=== PATIENT | male | born 1955 | race Two or more races ===

== ENCOUNTER 2020-04-21 20:54 | Inpatient (IN) | payer MEDICARE, MEDICAID ==
[~2020-04-21] VITALS: Ht 180.3 cm; Wt 113.8 kg
--- NOTE | 2020-04-21 21:14 | NUR ---
Pt arrives via ems to ed fro loss of loc after being found down. Pt does not remeber event but is a/ox3. reports he just took a tumbel over foot. Pt denies drug or etoh use. No s/sx of trauma, pt follows commands. Is very sleepy. No gross etoh smell at this time. Pt has gross neuro intact. Pt resting in gurney. Urinal and call light at bedside.
[2020-04-21 21:37] LABS: BASOPHILS # (AUTO) 0.02 x10^3/uL (0-0.1); BASOPHILS % (AUTO) 0 % (0-1); EOSINOPHILS % (AUTO) 0 % (1-7); LYMPHOCYTES # (AUTO) 0.37 x10^3/uL (1-3.4); LYMPHOCYTES % (AUTO) 4 % (22-44); MD NO; MEAN CORPUSCULAR HEMOGLOBIN 25.9 pg (27.5-34.5); MEAN CORPUSCULAR HGB CONC 32.4 g/dL (33.2-36.2); MEAN PLATELET VOLUME 10.9 fL (7.4-10.4); MONOCYTES # (AUTO) 0.34 x10^3/uL (0.2-0.8); MONOCYTES % (AUTO) 3 % (2-9); NEUTROPHILS # (AUTO) 9.78 x10^3/uL (1.8-6.8); NEUTROPHILS % (AUTO) 93 % (42-75); PLATELET COUNT 143 x10^3/uL (130-400); RED BLOOD COUNT 5.07 x10^6/uL (4.38-5.82)
[2020-04-21 21:40] LABS: ALANINE AMINOTRANSFERASE 39 U/L (12-78); ALBUMIN 3.6 g/dL (3.4-5.0); ANION GAP 14 mmol/L (5-15); CALCIUM 9.4 mg/dL (8.5-10.1); CHLORIDE 100 mmol/L (98-107); CREATININE 2.21 mg/dL (0.7-1.3)
[2020-04-21 21:44] LABS: ALKALINE PHOSPHATASE 90 U/L (45-117); BILIRUBIN,TOTAL 1.6 mg/dL (0.2-1.0); TOTAL PROTEIN 8.1 g/dL (6.4-8.2)
[2020-04-21] MEDS ORDERED: ASPIRIN 81 MG TABLET CHEW ONE (22:05)
[2020-04-21] MEDS ORDERED: ASPIRIN 81 MG TABLET CHEW PO ONE (22:30)
--- NOTE | 2020-04-21 22:33 | NUR ---
Spoke with MD regarding abnormal labs, pt to have one liter of NS and then to be admitted.
[2020-04-21] MEDS ORDERED: ASPI-515 PO (22:53)
[2020-04-21] MEDS ORDERED: FURO-93 PO (22:53)
[2020-04-21] MEDS ORDERED: CARV3.1212 PO (22:53)
[2020-04-21] MEDS ORDERED: ONDANSETRON 2MG/ML, 2ML IVPush PRN (23:00)
[2020-04-21] MEDS ORDERED: ACETAMINOPHEN 325 MG TABLET PO PRN (23:00)
[2020-04-21] MEDS ORDERED: morphine SULFATE 10 MG/ML, 1ML IVPush PRN (23:00)
[2020-04-21] MEDS ORDERED: HEPARIN 5,000 UNITS/ML, 1ML SQ SCH (23:00)
[2020-04-21] MEDS ORDERED: SODIUM CHLORIDE 0.9%, 500ML IVBOLUS ONE (23:00)
[2020-04-21] MEDS ORDERED: hydrALAzine 20 MG/ML, 1ML IVPush PRN (23:00)
[2020-04-21] MEDS ORDERED: POLYETHYLENE GLYCOL 17 GM PACKET PO PRN (23:00)
[2020-04-21] MEDS ORDERED: BISACODYL 10 MG SUPP PR PRN (23:00)
--- NOTE | 2020-04-21 23:43 | NUR ---
Pt provided with refreshments and nutrition.
[2020-04-22 00:22] VITALS: BP 145/86
[2020-04-22] MEDS ORDERED: CARV6.2512 PO (01:06)
[2020-04-22] MEDS ORDERED: GABA600T7 PO (01:06)
[2020-04-22] MEDS: NICOTINE 14MG/24 HR PATCH.TD24 TD SCH ×2 (01:40→20:28)
[2020-04-22 05:07] LABS: ALBUMIN 3.4 g/dL (3.4-5.0); ANION GAP 15 mmol/L (5-15); CALCIUM 9.2 mg/dL (8.5-10.1); CHLORIDE 100 mmol/L (98-107)
[2020-04-22 05:19] LABS: CREATININE 2.13 mg/dL (0.7-1.3)
[2020-04-22 05:20] LABS: ALANINE AMINOTRANSFERASE 46 U/L (12-78); ALKALINE PHOSPHATASE 96 U/L (45-117); BILIRUBIN,TOTAL 1.1 mg/dL (0.2-1.0); CHOL/HDL RATIO 4.9; CHOLESTEROL, TOTAL 195 mg/dL (140-239); HDL CHOL % 21 % (26-37); HDL CHOLESTEROL (DIRECT) 40 mg/dL (40-60); LDL CHOLESTEROL,CALCULATED 134 mg/dL (54-169); LDL/HDL RATIO 3.4 (0.5-3.0); TRIGLYCERIDES 105 mg/dL (50-200); VLDL CHOLESTEROL 21 mg/dL (0-25)
[2020-04-22] MEDS ORDERED: HEPARIN MC SCH (06:00)
[2020-04-22] MEDS ORDERED: METOPROLOL SUCCINATE 25 MG TAB.ER.24H PO SCH (06:00)
[2020-04-22 06:10] LABS: BASOPHILS # (AUTO) 0.04 x10^3/uL (0-0.1); BASOPHILS % (AUTO) 0 % (0-1); EOSINOPHILS % (AUTO) 0 % (1-7); LYMPHOCYTES # (AUTO) 1.17 x10^3/uL (1-3.4); LYMPHOCYTES % (AUTO) 10 % (22-44); MD SCAN; MEAN CORPUSCULAR HEMOGLOBIN 25.7 pg (27.5-34.5); MEAN CORPUSCULAR HGB CONC 31.9 g/dL (33.2-36.2); MEAN CORPUSCULAR VOLUME 80.6 fL (81-97); MEAN PLATELET VOLUME 11.8 fL (7.4-10.4); MONOCYTES # (AUTO) 0.95 x10^3/uL (0.2-0.8); MONOCYTES % (AUTO) 8 % (2-9); NEUTROPHILS % (AUTO) 82 % (42-75); PLATELET COUNT 153 x10^3/uL (130-400); RED BLOOD COUNT 5.19 x10^6/uL (4.38-5.82); RED CELL DISTRIBUTION WIDTH 22.2 % (9.4-14.8)
[2020-04-22] MEDS: ASPIRIN 325 MG TABLET EC PO SCH (06:31)
[2020-04-22] MEDS: HEPARIN 25,000 UNITS/250ML PMX 250 ML IV PRN (06:46)
[2020-04-22] MEDS ORDERED: HEPARIN 5,000 UNITS/ML, 1ML IV ONE (07:00)
[2020-04-22 07:28] LABS: AMPHETAMINE SCREEN, URINE Positive (Negative); BARBITURATE SCREEN, URINE Negative (Negative); BENZODIAZEPINE SCREEN, URINE Negative (Negative); CANNABINOID SCREEN, URINE Negative (Negative); COCAINE SCREEN, URINE Negative (Negative); METHADONE SCREEN, URINE Negative (Negative); OPIATE SCREEN, URINE Negative (Negative)
[2020-04-22 08:24] VITALS: BP 145/84
[2020-04-22] MEDS ORDERED: METOPROLOL TARTRATE 25 MG TAB PO SCH (09:00)
[2020-04-22] MEDS ORDERED: GABAPENTIN 300 MG CAPSULE PO SCH (09:00)
[2020-04-22 10:30] LABS: CREATINE KINASE, TOTAL 4940 U/L (39-308)
[2020-04-22] MEDS: SODIUM CHLORIDE 0.9% 1,000 ML IV SCH ×3 (10:47→19:42)
[2020-04-22] MEDS: SENNA/DOCUSATE TABLET PO SCH (10:47)
[2020-04-22] MEDS ORDERED: LORazepam 0.5MG TABLET PO PRN (11:30)
[2020-04-22] MEDS ORDERED: LORazepam 2 MG/ML, 1ML IV PRN ×5 (11:30)
[2020-04-22] MEDS ORDERED: LORazepam 1MG TABLET PO PRN (11:30)
[2020-04-22] MEDS: LORazepam 1MG TABLET PO PRN ×3 (11:47→20:27)
[2020-04-22] MEDS: HEPARIN 5,000 UNITS/ML, 1ML IV PRN ×2 (13:26→20:41)
[2020-04-22 13:35] VITALS: BP 125/79
[2020-04-22 19:49] VITALS: BP 156/71
[2020-04-22] MEDS: ATORVASTATIN 80 MG TABLET PO SCH (21:47)
[2020-04-23 01:31] VITALS: BP 152/82
[2020-04-23] MEDS: HEPARIN 25,000 UNITS/250ML PMX 250 ML IV PRN ×2 (03:36→18:13)
[2020-04-23] MEDS: HEPARIN 5,000 UNITS/ML, 1ML IV PRN ×2 (03:38→16:05)
[2020-04-23] MEDS: SODIUM CHLORIDE 0.9% 1,000 ML IV SCH ×3 (03:43→18:13)
[2020-04-23] MEDS: LORazepam 1MG TABLET PO PRN ×3 (04:37→23:26)
[2020-04-23] MEDS: ASPIRIN 325 MG TABLET EC PO SCH (04:39)
[2020-04-23] MEDS: METOPROLOL SUCCINATE 25 MG TAB.ER.24H PO SCH (04:39)
[2020-04-23 04:47] VITALS: BP 131/85
[2020-04-23 06:54] LABS: MEAN CORPUSCULAR HEMOGLOBIN 26.2 pg (27.5-34.5); MEAN CORPUSCULAR HGB CONC 32.3 g/dL (33.2-36.2); MEAN CORPUSCULAR VOLUME 81.2 fL (81-97); PLATELET COUNT 145 x10^3/uL (130-400); RED BLOOD COUNT 5.22 x10^6/uL (4.38-5.82); RED CELL DISTRIBUTION WIDTH 22.7 % (9.4-14.8)
[2020-04-23 07:03] LABS: ALANINE AMINOTRANSFERASE 55 U/L (12-78); ANION GAP 11 mmol/L (5-15); CALCIUM 8.6 mg/dL (8.5-10.1); CHLORIDE 106 mmol/L (98-107); CREATININE 1.93 mg/dL (0.7-1.3)
[2020-04-23 07:07] LABS: ALKALINE PHOSPHATASE 83 U/L (45-117); BILIRUBIN,TOTAL 1.5 mg/dL (0.2-1.0); TOTAL PROTEIN 7.3 g/dL (6.4-8.2)
[2020-04-23 07:24] VITALS: BP 119/81
[2020-04-23 07:30] LABS: BASOPHILS # (AUTO) 0.03 x10^3/uL (0-0.1); BASOPHILS % (AUTO) 0 % (0-1); EOSINOPHILS # (AUTO) 0.01 x10^3/uL (0-0.4); EOSINOPHILS % (AUTO) 0 % (1-7); LYMPHOCYTES # (AUTO) 0.68 x10^3/uL (1-3.4); LYMPHOCYTES % (AUTO) 5 % (22-44); MD SCAN; MONOCYTES # (AUTO) 0.16 x10^3/uL (0.2-0.8); MONOCYTES % (AUTO) 1 % (2-9); NEUTROPHILS % (AUTO) 94 % (42-75)
[2020-04-23] MEDS: SENNA/DOCUSATE TABLET PO SCH (08:30)
[2020-04-23] MEDS ORDERED: POTASSIUM CHLORIDE 20 MEQ TAB.ER.PRT PO ONE (10:00)
[2020-04-23 10:33] LABS: CLOSTRIDIUM DIFFICILE ANTIGEN NEGATIVE; CLOSTRIDIUM DIFFICILE TOXIN NEGATIVE (Negative)
[2020-04-23 12:57] VITALS: BP 116/75
[2020-04-23 20:00] VITALS: BP 137/76
[2020-04-23] MEDS: ATORVASTATIN 80 MG TABLET PO SCH (21:31)
[2020-04-23] MEDS: NICOTINE 14MG/24 HR PATCH.TD24 TD SCH (21:32)
[2020-04-24] MEDS: SODIUM CHLORIDE 0.9% 1,000 ML IV SCH ×4 (01:06→21:24)
[2020-04-24 01:49] VITALS: BP 122/70
[2020-04-24 04:15] LABS: MEAN CORPUSCULAR HEMOGLOBIN 26.1 pg (27.5-34.5); MEAN CORPUSCULAR HGB CONC 32.3 g/dL (33.2-36.2); MEAN CORPUSCULAR VOLUME 80.7 fL (81-97); PLATELET COUNT 131 x10^3/uL (130-400); RED CELL DISTRIBUTION WIDTH 23.1 % (9.4-14.8)
[2020-04-24 04:24] LABS: ALBUMIN 2.7 g/dL (3.4-5.0); ANION GAP 9 mmol/L (5-15); CALCIUM 8.1 mg/dL (8.5-10.1); CHLORIDE 110 mmol/L (98-107)
[2020-04-24 04:34] LABS: BASOPHILS # (AUTO) 0.03 x10^3/uL (0-0.1); BASOPHILS % (AUTO) 0 % (0-1); EOSINOPHILS # (AUTO) 0.07 x10^3/uL (0-0.4); EOSINOPHILS % (AUTO) 1 % (1-7); LYMPHOCYTES # (AUTO) 1.42 x10^3/uL (1-3.4); LYMPHOCYTES % (AUTO) 18 % (22-44); MD SCAN; MONOCYTES # (AUTO) 0.41 x10^3/uL (0.2-0.8); MONOCYTES % (AUTO) 5 % (2-9); NEUTROPHILS # (AUTO) 6.14 x10^3/uL (1.8-6.8); NEUTROPHILS % (AUTO) 76 % (42-75)
[2020-04-24 04:39] LABS: ALANINE AMINOTRANSFERASE 60 U/L (12-78); ALKALINE PHOSPHATASE 91 U/L (45-117); BILIRUBIN,TOTAL 1.6 mg/dL (0.2-1.0); CREATINE KINASE, TOTAL 1069 U/L (39-308); CREATININE 1.46 mg/dL (0.7-1.3); TOTAL PROTEIN 6.5 g/dL (6.4-8.2)
[2020-04-24 05:54] VITALS: BP 119/53
[2020-04-24] MEDS: ASPIRIN 81 MG TABLET EC PO SCH (05:58)
[2020-04-24] MEDS: METOPROLOL SUCCINATE 25 MG TAB.ER.24H PO SCH (05:59)
[2020-04-24] MEDS: LORazepam 1MG TABLET PO PRN (05:59)
[2020-04-24 07:09] VITALS: BP 154/87
[2020-04-24] MEDS: SENNA/DOCUSATE TABLET PO SCH (07:29)
[2020-04-24] MEDS: HEPARIN 25,000 UNITS/250ML PMX 250 ML IV PRN ×2 (09:35→23:12)
[2020-04-24 12:52] VITALS: BP 142/93
[2020-04-24 19:09] VITALS: BP 143/83
[2020-04-24] MEDS ORDERED: POTASSIUM CHLORIDE 20 MEQ TAB.ER.PRT PO ONE (20:00)
[2020-04-24] MEDS: ATORVASTATIN 80 MG TABLET PO SCH (21:23)
[2020-04-24] MEDS: NICOTINE 14MG/24 HR PATCH.TD24 TD SCH (21:24)
[2020-04-24 23:44] VITALS: BP 139/91
[2020-04-25] MEDS: SODIUM CHLORIDE 0.9% 1,000 ML IV SCH (04:14)
[2020-04-25] MEDS: METOPROLOL SUCCINATE 25 MG TAB.ER.24H PO SCH (05:37)
[2020-04-25] MEDS: ASPIRIN 81 MG TABLET EC PO SCH (05:37)
[2020-04-25 05:52] LABS: ANION GAP 10 mmol/L (5-15); CALCIUM 8.6 mg/dL (8.5-10.1); CHLORIDE 110 mmol/L (98-107)
[2020-04-25 05:55] LABS: CREATINE KINASE, TOTAL 411 U/L (39-308); MEAN CORPUSCULAR HEMOGLOBIN 26.1 pg (27.5-34.5); MEAN CORPUSCULAR HGB CONC 32.1 g/dL (33.2-36.2); MEAN CORPUSCULAR VOLUME 81.2 fL (81-97); MEAN PLATELET VOLUME 11.3 fL (7.4-10.4); PLATELET COUNT 145 x10^3/uL (130-400); RED BLOOD COUNT 4.82 x10^6/uL (4.38-5.82); RED CELL DISTRIBUTION WIDTH 22.6 % (9.4-14.8)
[2020-04-25 06:20] LABS: BASOPHILS # (AUTO) 0.02 x10^3/uL (0-0.1); BASOPHILS % (AUTO) 0 % (0-1); EOSINOPHILS % (AUTO) 4 % (1-7); LYMPHOCYTES # (AUTO) 1.24 x10^3/uL (1-3.4); LYMPHOCYTES % (AUTO) 17 % (22-44); MD SCAN; MONOCYTES # (AUTO) 0.51 x10^3/uL (0.2-0.8); MONOCYTES % (AUTO) 7 % (2-9); NEUTROPHILS # (AUTO) 5.13 x10^3/uL (1.8-6.8); NEUTROPHILS % (AUTO) 71 % (42-75)
[2020-04-25 07:18] VITALS: BP 134/79
[2020-04-25] MEDS: SENNA/DOCUSATE TABLET PO SCH (08:07)
== END 2020-04-25 10:34 | disposition left against medical advice (07) | DRG 280 ==
LOC: ED 23:09 → EDIP 23:10 → 5SO 04-22 00:05
PROVIDERS: ADMIT Hospitalist; ATTEND Internal Medicine Infectious Disease
DX: I21.4 Non-ST elevation (NSTEMI) myocardial infarction (principal); I50.43 Acute on chronic combined systolic (congestive) and diastolic (congestive) heart failure; M62.82 Rhabdomyolysis; N17.9 Acute kidney failure, unspecified; E66.9 Obesity, unspecified; E78.5 Hyperlipidemia, unspecified; E86.0 Dehydration; F15.10 Other stimulant abuse, uncomplicated; F17.200 Nicotine dependence, unspecified, uncomplicated; G62.9 Polyneuropathy, unspecified; I11.0 Hypertensive heart disease with heart failure; I25.10 Atherosclerotic heart disease of native coronary artery without angina pectoris; I25.5 Ischemic cardiomyopathy; I27.20 Pulmonary hypertension, unspecified; Z53.29 Procedure and treatment not carried out because of patient's decision for other reasons; I37.1 Nonrheumatic pulmonary valve insufficiency; I49.3 Ventricular premature depolarization; I73.9 Peripheral vascular disease, unspecified; Z59.0 Homelessness; I25.2 Old myocardial infarction; Z95.1 Presence of aortocoronary bypass graft; Z95.5 Presence of coronary angioplasty implant and graft; Z79.899 Other long term (current) drug therapy; Z68.35 Body mass index [BMI] 35.0-35.9, adult
CPT/HCPCS: 36415; 71045; 80048; 80053; 80061; 80307; 82550; 82570; 83036; 83735; 83880; 84300; 84443; 84484; 85025; 85520; 87324; 93005; 93306; 99291; G0378; J1644; J7030; J7040